=== PATIENT | female | born 1960 ===

== ENCOUNTER 2019-06-08 21:05 | Emergency (ER) | payer SELFPAY, OTHER ==
[2019-06-08] MEDS ORDERED: Adacel (T-DAP) 0.5 ML SYRINGE ONE (21:35)
== END 2019-06-08 22:09 | disposition home or self-care (01) ==
LOC: BURERS 21:05
DX: S00.03XA Contusion of scalp, initial encounter (principal); S60.512A Abrasion of left hand, initial encounter; S60.511A Abrasion of right hand, initial encounter; E78.1 Pure hyperglyceridemia; E78.5 Hyperlipidemia, unspecified; Z79.899 Other long term (current) drug therapy; V69.9XXA Occupant (driver) (passenger) of heavy transport vehicle injured in unspecified traffic accident, initial encounter
CPT/HCPCS: 90471; 90715; 99283